=== PATIENT | male | born 1970 | race Caucasian/White ===

== ENCOUNTER 2017-09-19 22:57 | Emergency (ER) | payer BC ==
--- NOTE | 2017-09-19 23:53 | ER Document Report ---
ED General - General Chief Complaint: Groin Pain Stated Complaint: GENITAL AND ABDOMINAL PAIN Time Seen by Provider: 09/19/17 23:42 Notes: Patient is a 47-year-old male presents with complaint of left testicular pain. He first noticed some left testicular pain 22 hours ago. Says it has gradually worsened. Now is also having some pain going into the left inguinal area. He says he has noticed that he feels to be possibly bump left inguinal area. Worse when he sits up. No recent fevers or infections. No discharge from his penis. He is sexually active but says he has had no dysuria or abnormal discharge and his sexual partner was abstinent for a year before being with him. No recent vomiting or diarrhea. No history of surgeries over the abdomen or pelvic region. No other complaints at this time. TRAVEL OUTSIDE OF THE [place] IN LAST 30 DAYS: No Past Medical History - Social History Smoking Status: Current Every Day Smoker Frequency of alcohol use: Rare Drug Abuse: None Family History: Reviewed & Not Pertinent Review of Systems - Review of Systems Notes: My Normal Review Basic REVIEW OF SYSTEMS: CONSTITUTIONAL : Denies fever, chills, or sweats. Denies recent illness. RESPIRATORY: Denies cough, cold, or chest congestion. Denies shortness of breath, difficulty breathing, or wheezing. GASTROINTESTINAL: Denies abdominal pain. Denies nausea, vomiting, or diarrhea. Denies constipation. Last BM: GENITOURINARY: Denies difficulty urinating, painful urination, burning, frequency, or blood in urine. Some left testicular pain. Inguinal pain. MUSCULOSKELETAL: Denies neck or back pain or joint pain or swelling. SKIN: Denies rash or skin lesions. NEUROLOGICAL: Denies altered mental status or loss of consciousness. Denies headache. Denies weakness or paralysis or loss of use of either side. Denies problems with gait or speech. Denies sensory or motor loss. ALL OTHER SYSTEMS REVIEWED AND NEGATIVE. Physical Exam - Vital signs Vitals: Temp Pulse Resp BP Pulse Ox 98.3 F 101 H 17 164/82 H 96 09/19/17 23:06 09/19/17 23:06 09/19/17 23:06 09/19/17 23:06 09/19/17 23:06 - Notes Notes: General Appearance: Well nourished, alert, cooperative, no acute distress, no obvious discomfort. Well-appearing. Vitals: reviewed, See vital signs table. Eyes: PERRL, EOMI, Conjuctiva clear Lungs: No wheezing, No rales, No rhonci, No accessory muscle use, good air exchange bilaterally. Heart: Normal rate, Regular rythm, No murmur, no rub Abdomen: Normal BS, soft, No rigidity, No reproducible abdominal tenderness to palpation, No guarding, no rebound, no abdominal masses, no organomegaly Genital: Some tenderness to palpation when I lift up on the left testicle. No redness or swelling to the testicle. Patient does not have any swelling or bulge in either the right nor left inguinal area. No palpable left inguinal hernia. Extremities: strength 5/5 in all extremities, good pulses in all extremities, no swelling or tenderness in the extremities, no edema. Skin: warm, dry, appropriate color, no rash Neuro: speech clear, oriented x 3, normal affect, responds appropriately to questions. Course - Re-evaluation Re-evalutation: 09/20/17 05:56 Based on patient's ultrasound was likely that he has a left inguinal hernia. Is fully reduced at this time. Only comes out during Valsalva. There is no signs of incarceration. Patient is very comfortable on exam and looks well. Patient does take oxycodone chronically. Will place him on stool softeners so that he does not strain to have a bowel movement. A we will have him follow-up with surgery clinic. I encourage him return to ER immediately if he has worsening pain, fevers, vomiting, or if he has a lump or swollen area over the inguinal area or lower stomach that does not go away immediately. Patient agrees with plan will be discharged home. Dictation of this chart was performed using voice recognition software; therefore, there may be some unintended grammatical errors. - Vital Signs Vital signs: Temp Pulse Resp BP Pulse Ox 98.4 F 66 18 139/79 H 93 09/20/17 01:45 09/20/17 01:45 09/20/17 01:45 09/20/17 01:45 09/20/17 01:45 Discharge - Discharge Clinical Impression: Left inguinal hernia Condition: Good Disposition: HOME, SELF-CARE Additional Instructions: Hernia You have a hernia. A hernia forms at a weak spot in the abdominal wall. Bowel slips out of the abdominal cavity into the weak spot. Hernias tend to occur in the groin (especially in males), the fold of the thigh, the naval, or at a surgical scar. Surgical repair of the defect is usually necessary. The problem tends to get worse. It's important that you follow up as recommended. For now, you should avoid straining, heavy lifting, and vigorous exercise. Complications occur if the hernia becomes tightly stuck. You should come back immediately if the area becomes increasingly painful, swollen, or discolored, or if you develop abdominal pain and vomiting. Please call the surgery clinic in the morning to make a close outpatient appointment within 3-5 days. The number to the Surgery Clnic is under Dr. Castellon in your discharge paperwork. Prescriptions: Docusate Sodium [Colace] 100 mg PO BID #30 capsule Referrals: CHUCKY CASTELLON MD [ACTIVE STAFF] - Follow up in 3-5 days
--- NOTE | 2017-09-20 01:08 | RADIOLOGY REPORT (SQ) ---
EXAM DESCRIPTION: U/S SCROTUM W/DOPPLER CLINICAL HISTORY: 47 years, Male, left testicular pain COMPARISON: None. TECHNIQUE: Real-time sonographic images of the scrotal contents obtained using a linear multi hertz transducer. Color and spectral Doppler imaging obtained bilaterally. FINDINGS: The right testicle measures 4.7 x 2.8 x 2.5 cm. Left testicle measures 4.3 x 2.2 x 3.0 cm. The testicles have homogenous echogenicity bilaterally without evidence of intratesticular mass. Tiny epididymal head cyst on the right measuring 0.7 cm. The epididymis are otherwise unremarkable bilaterally without definite increased blood flow. Small bilateral hydroceles. Color and spectral Doppler images demonstrate flow within the testicles bilaterally. In the region of patient's pain in the left groin in the region of the inguinal canal there is an abnormality with a possible echogenic bowel appearing wall only seen on Valsalva measuring 3.3 cm. IMPRESSION: 1. In the area of patient's pain in the left groin there is a 3.3 cm irregularity with hyperechoic wall possibly representing bowel which is seen only on Valsalva. This may represent a left inguinal hernia. 2. Small bilateral hydroceles. 3. Flow identified in the testicles bilaterally.
[2017-09-20 01:49] VITALS: BP 139/79
== END 2017-09-20 01:45 | disposition home or self-care (01) ==
LOC: ER 22:57
DX: K40.90 Unilateral inguinal hernia, without obstruction or gangrene, not specified as recurrent (principal); R10.30 Lower abdominal pain, unspecified; N50.812 Left testicular pain; F17.200 Nicotine dependence, unspecified, uncomplicated
CPT/HCPCS: 76870; 93976; 99284

== ENCOUNTER 2017-12-31 19:52 | Emergency (ER) | payer SELFPAY ==
[2017-12-31] MEDS ORDERED: CEPHALEXIN 500 MG CAPSULE PO ONE (21:21)
[2017-12-31] MEDS ORDERED: SULFAMETHOXAZOLE/TRIMETHOPRIM 800-160 MG TABLET PO ONE (21:21)
--- NOTE | 2017-12-31 21:21 | ER Document Report ---
HPI - HPI Pain Level: 3 Context: Patient is a 47 year old male who presents to the ED with a possible spider bite. Patient states that he noticed it about 4 days ago when he has been continuously trying to pop it to drain any fluid which he states there is many. States there is a well demarcated erythematous area surrounding it. Denies any fevers or chills. Admits to history of cellulitis in the past. Denies any history of MRSA of his knowledge. - CONSTITUTIONAL Constitutional: DENIES: Fever, Chills - EENT EENT: DENIES: Sore Throat, Ear Pain, Eye problems - NEURO Neurology: DENIES: Headache, Weakness, Vision blurred, Dizzinesss / Vertigo - CARDIOVASCULAR Cardiovascular: DENIES: Chest pain - RESPIRATORY Respiratory: DENIES: Trouble Breathing, Coughing - GASTROINTESTINAL Gastrointestinal: DENIES: Abdominal Pain, Black / Bloody Stools - URINARY Urinary: DENIES: Dysuria, Urgency, Frequency - MUSCULOSKELETAL Musculoskeletal: REPORTS: Extremity pain - R hip area Past Medical History - Social History Smoking Status: Unknown if Ever Smoked Family History: Reviewed & Not Pertinent Patient has suicidal ideation: No Patient has homicidal ideation: No Renal/ Medical History: Denies: Hx Peritoneal Dialysis Vertical Provider Document - CONSTITUTIONAL Agree With Documented VS: Yes Notes: PHYSICAL EXAM GENERAL: Alert, interacts well. HEAD: Normocephalic, atraumatic. EYES: Pupils equal, round, and reactive to light. Extraocular movements intact. ENT: Oral mucosa moist, tongue midline. NECK: Full range of motion. Supple. Trachea midline. LUNGS: Clear to auscultation bilaterally, no wheezes, rales, or rhonchi. No respiratory distress. HEART: Regular rate and rhythm. No murmurs, gallops, or rubs. EXTREMITIES: Moves all 4 extremities spontaneously. No edema, radial and dorsalis pedis pulses 2/4 bilaterally. No cyanosis. NEUROLOGICAL: Alert and oriented x4. Normal speech. PSYCH: Normal affect, normal mood. SKIN: Warm, dry, normal turgor. 5 cm cellulitic area with central superficial eschar without any fluctuance on the right hip - INFECTION CONTROL TRAVEL OUTSIDE OF THE [place] IN LAST 30 DAYS: No Course - Re-evaluation Re-evalutation: 12/31/17 21:19 Patient is a 47-year-old male who is hemodynamically stable, no acute distress and afebrile. Presentation is consistent with a superficial cellulitis. No evidence of fluctuance or concern for abscess. Discussed with patient we will initiate antibiotics and educated on warm compresses. Discussed strict return precautions and otherwise stable for discharge home. - Vital Signs Vital signs: Temp Pulse Resp BP Pulse Ox 99.1 F 80 15 133/81 H 96 12/31/17 20:07 12/31/17 20:07 12/31/17 20:07 12/31/17 20:07 12/31/17 20:07 Discharge - Discharge Clinical Impression: Cellulitis Qualifiers: Site of cellulitis: buttock Qualified Code(s): L03.317 - Cellulitis of buttock Condition: Good Disposition: HOME, SELF-CARE Instructions: Cellulitis ([facility]), Cephalexin ([facility]), Trimethoprim-Sulfa ([facility]) Prescriptions: Cephalexin Monohydrate [Keflex 500 mg Capsule] 500 mg PO QID #20 capsule Sulfamethoxazole/Trimethoprim [Bactrim Ds Tablet] 2 each PO BID 5 Days tablet Referrals: ODALIS MONTAGUE FNP [Primary Care Provider] - Follow up in 3-5 days
[2017-12-31 22:01] VITALS: BP 134/84
== END 2017-12-31 22:01 | disposition home or self-care (01) ==
LOC: ER 19:52
DX: L03.317 Cellulitis of buttock (principal); M25.551 Pain in right hip
CPT/HCPCS: 99283